=== PATIENT | male | born 1985 | race Caucasian/White ===

== ENCOUNTER 2022-01-22 11:30 | Outpatient (REF) | payer OTHER, SELFPAY ==
--- NOTE | ~2022-01-22 | XR_ITS ---
EXAMINATION: LEFT FOOT AND ANKLE CLINICAL INFORMATION: Pain COMPARISON: None TECHNIQUE: 3 views of the left foot and 2 views of the left ankle FINDINGS: There is no evidence of acute fracture or dislocation of the left ankle. Left ankle mortise intact. No significant soft tissue swelling appreciated. 3 views of the left foot do not demonstrate any evidence of acute fracture or dislocation. No significant soft tissue swelling. No radiopaque foreign bodies. Joint spaces are maintained. XR/XR foot LT min 3V IMPRESSION: No significant bony abnormality of the left foot or ankle.
--- NOTE | ~2022-01-22 | XR_ITS ---
EXAMINATION: LEFT FOOT AND ANKLE CLINICAL INFORMATION: Pain COMPARISON: None TECHNIQUE: 3 views of the left foot and 2 views of the left ankle FINDINGS: There is no evidence of acute fracture or dislocation of the left ankle. Left ankle mortise intact. No significant soft tissue swelling appreciated. 3 views of the left foot do not demonstrate any evidence of acute fracture or dislocation. No significant soft tissue swelling. No radiopaque foreign bodies. Joint spaces are maintained. XR/XR ankle LT 2V IMPRESSION: No significant bony abnormality of the left foot or ankle.
== END 2022-01-22 11:31 | disposition home or self-care (01) ==
LOC: HO.HMGCX 11:30
PROVIDERS: PCP Internal Medicine; Visit Provider Physician Assistant Medical
DX: M25.572 Pain in left ankle and joints of left foot (principal)
CPT/HCPCS: 73600; 73630

== ENCOUNTER 2022-10-20 09:12 | Outpatient (REF) | payer OTHER, SELFPAY ==
[2022-10-20 11:12] LABS: MANUAL DIFF FLAG NO
[2022-10-20 11:16] LABS: Basophils Absolute Auto 0.1 X10*3/uL (0.0-0.2); Basophils Percent Auto 0.8 % (0-2); Eosinophils Absolute Auto 0.2 X10*3/uL (0.0-0.4); Eosinophils Percent Auto 1.8 % (0-4); Hemoglobin 16.4 g/dl (14.0-18.0); Imm Gran Abs Auto 0.02 X10*3/uL (0.00-0.03); Imm Gran Pct Auto 0.2 % (0.0-0.4); Lymphocytes Absolute Auto 3.3 X10*3/uL (1.2-4.9); Lymphocytes Percent Auto 37.1 % (20-40); Mean Corpuscular HGB Conc 34.2 g/dl (31.0-36.0); Mean Corpuscular Hemoglobin 29.8 pg (27.0-33.0); Mean Corpuscular Volume 87.3 fL (80.0-98.0); Mean Platelet Volume 10.1 fL (9.4-12.4); Monocytes Absolute Auto 0.8 X10*3/uL (0.1-1.2); Monocytes Percent Auto 8.9 % (2-11); Neutrophils Absolute Auto 4.5 x10*3/uL (2.0-8.3); Neutrophils Percent Auto 51.2 % (45-73); Platelet Count 249 X10*3/uL (160-400); Red Cell Distribution Width 12.9 % (11.0-16.0); White Blood Count 8.8 X10*3/uL (4.8-10.8)
[2022-10-20 12:15] LABS: Alanine Aminotransferase 40 U/L (0-40); Albumin Level 4.5 g/dL (3.5-5.0); Alkaline Phosphatase 66 U/L (39-117); Anion Gap 12 (12-20); Aspartate Amino Transferase 18 U/L (5-37); Bilirubin Total 0.4 mg/dL (0.0-1.0); Blood Urea Nitrogen 21 mg/dL (9-16); Calcium 9.3 mg/dL (8.4-10.2); Carbon Dioxide 27 mmol/L (22-29); Chloride 103 mmol/L (96-108); Cholesterol 168 mg/dL; Estimated Glomerular Filt Rate > 60; Glucose Fasting 97 mg/dL (60-99); HDL Cholesterol 40 mg/dL; LDL Cholesterol Calculated 101 mg/dl; Potassium 3.7 mmol/L (3.3-5.1); Sodium 138 mmol/L (135-145); Total Protein 7.5 g/dL (6.5-8.0); Triglycerides 138 mg/dL
== END 2022-10-20 09:13 | disposition home or self-care (01) ==
LOC: HO.HMGCLDS 09:12
PROVIDERS: PCP Internal Medicine; Visit Provider Internal Medicine
DX: Z00.01 Encounter for general adult medical examination with abnormal findings (principal); E66.9 Obesity, unspecified
CPT/HCPCS: 36415; 80053; 80061; 85025

== ENCOUNTER 2022-11-08 11:37 | Outpatient (REF) | payer OTHER, SELFPAY ==
[2022-11-08 12:28] LABS: Influenza A PCR NEGATIVE (Negative); Influenza B PCR NEGATIVE (Negative); Resp Syncy Virus RNA Qual PCR POSITIVE (Negative); SARS COV2 PCR INHOUSE NEGATIVE (Negative)
== END 2022-11-08 11:38 | disposition home or self-care (01) ==
LOC: HO.LNP 11:37
PROVIDERS: Visit Provider Physician Assistant
DX: Z20.822 Contact with and (suspected) exposure to COVID-19 (principal)
CPT/HCPCS: 0241U

== ENCOUNTER 2023-08-25 09:18 | Outpatient (AMB) | payer OTHER, SELFPAY ==
[2023-08-25 10:32] VITALS: BP 118/72; PULSE 73; TEMP 36.2; O2SAT 96; BMI 37.2
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
== END 2023-08-25 10:53 | disposition home or self-care (01) ==
PROVIDERS: PCP Internal Medicine; Visit Provider Physician Assistant Medical
DX: J40 Bronchitis, not specified as acute or chronic (principal)
CPT/HCPCS: 99213

== ENCOUNTER 2023-10-17 12:22 | Outpatient (AMB) | payer OTHER, SELFPAY ==
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
[2023-10-17 12:51] VITALS: BP 122/78; PULSE 84; O2SAT 98; BMI 37.3
== END 2023-10-17 13:36 | disposition home or self-care (01) ==
PROVIDERS: Visit Provider Internal Medicine
DX: Z00.01 Encounter for general adult medical examination with abnormal findings (principal); R05.8 Other specified cough; E66.9 Obesity, unspecified; Z68.37 Body mass index [BMI] 37.0-37.9, adult
CPT/HCPCS: 99395

== ENCOUNTER 2024-08-07 08:06 | Outpatient (AMB) | payer OTHER, SELFPAY ==
[2024-08-07 08:19] VITALS: BP 118/72; PULSE 87; TEMP 36.6; O2SAT 97; BMI 38.6
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
== END 2024-08-07 08:40 | disposition home or self-care (01) ==
PROVIDERS: PCP Internal Medicine; Visit Provider Internal Medicine
DX: B35.3 Tinea pedis (principal)

== ENCOUNTER → 2024-08-07 08:06 | Outpatient (BNVA) | payer OTHER, SELFPAY | PROVIDERS: PCP Internal Medicine; Visit Provider Internal Medicine ==

== ENCOUNTER 2024-11-06 08:47 | Outpatient (AMB) | payer BC, SELFPAY ==
[2024-11-06 09:24] VITALS: BP 122/80; PULSE 88; TEMP 36.7; O2SAT 97
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
== END 2024-11-06 09:35 | disposition home or self-care (01) ==
PROVIDERS: PCP Internal Medicine; Visit Provider Physician Assistant
DX: J06.9 Acute upper respiratory infection, unspecified (principal)

== ENCOUNTER → 2024-11-06 08:47 | Outpatient (BNVA) | payer BC, SELFPAY | PROVIDERS: PCP Internal Medicine ==